=== PATIENT | male | born 1940 | race Caucasian/White ===

== ENCOUNTER 2016-05-02 05:31 | Inpatient (IN) | payer MEDICARE, OTHER ==
[2016-05-01 09:17] VITALS: Ht 172.7 cm; Wt 94.0 kg
[~2016-05-02] VITALS: Ht 172.7 cm; Wt 94.0 kg
[2016-05-02] VITALS (24 sets, daily range): BP systolic 110–159; BP diastolic 62–88; PULSE 54–73; RESP 17–20
[~2016-05-02 05:31] MED LIST: BUPIVACAINE 0.5% (SDV) 30 ML, morphine SULFATE (PF) 8 MG, EPINEPHrine 0.3 MG, KETOROLAC... IRR SCH; CEFAZOLIN 2 GM/50 ML (PMX) 50 ML IVPB ONE; DEXAMETHASONE 1 MG TAB PO ONE; GABAPENTIN 300 MG CAP PO ONE; TRANEXAMIC ACID 1,000 MG in SOD CHLORIDE 0.9% 100 ML IVPB ONE; oxyCODONE (CR) 10 MG TAB [oxyCONTIN] PO ONE; traMADol 50 MG TAB PO ONE
[2016-05-02] MEDS ORDERED: LISI-313 PO (06:37)
[2016-05-02] MEDS ORDERED: BUPIVACAINE 0.5%/EPI (SDV) 30 ML INJ ONE (06:42)
[2016-05-02] MEDS ORDERED: CA CHLORIDE 10% 10 ML SYRINGE ONE (06:43)
[2016-05-02] MEDS ORDERED: THROMBIN 5000 UNIT VIAL ONE (06:43)
[2016-05-02] MEDS ORDERED: POLYMYXIN/BACITRACIN 1L IRRIG ONE (06:43)
[2016-05-02] MEDS ORDERED: MIDAZOLAM 1 MG/ML 2 ML INJ ONE (06:54)
[2016-05-02] MEDS ORDERED: ROPIVACAINE 0.5 % 30 ML VIAL ONE (06:59)
[2016-05-02] MEDS ORDERED: BUPIVACAINE 0.25%/EPI (SDV) 30 ML INJ ONE (06:59)
[2016-05-02] MEDS ORDERED: LABETALOL HCL 20MG INJ IV PRN (08:30)
[2016-05-02] MEDS ORDERED: NALOXONE (0.4 MG/ML) INJ IV PRN (08:30)
[2016-05-02] MEDS ORDERED: ONDANSETRON 4 MG INJ IV PRN ×2 (08:30→09:00)
[2016-05-02] MEDS ORDERED: HYDROmorphONE (0.2 MG/ML) 10ML SYG IV PRN ×2 (08:30)
[2016-05-02] MEDS ORDERED: hydrALAzine 20 MG INJ IV PRN (08:30)
[2016-05-02] MEDS ORDERED: FENTAnyl 50 MCG/ML VIAL IV PRN (08:30)
[2016-05-02] MEDS ORDERED: DIPHENHYDRAMINE 50 MG INJ IV PRN ×2 (08:30→09:00)
[2016-05-02] MEDS ORDERED: MEPERIDINE 25 MG INJ IV PRN (08:30)
[2016-05-02] MEDS ORDERED: LIDOCAINE 2% (SDV) 5 ML INJ ONE (08:41)
[2016-05-02] MEDS ORDERED: ROCURONIUM 50 MG INJ ONE (08:41)
[2016-05-02] MEDS ORDERED: ETOMIDATE 20 MG INJ ONE (08:41)
[2016-05-02] MEDS ORDERED: CEFAZOLIN 1 GM INJ ONE (08:42)
[2016-05-02] MEDS ORDERED: ONDANSETRON 4 MG INJ ONE ×2 (08:42→08:43)
[2016-05-02] MEDS ORDERED: GLYCOPYRROLATE 0.4 MG INJ ONE (08:43)
[2016-05-02] MEDS ORDERED: NEOSTIGMINE 3 MG/3 ML SYRINGE ONE (08:43)
--- NOTE | 2016-05-02 08:51 | HPN ---
Date/Time of Note Date/Time of Note DATE: 05/02/16 TIME: 08:51 Interval H&P Admission Note Pt. seen H&P reviewed: No system changes DIVYA REINA MD May 02, 2016 08:51
--- NOTE | 2016-05-02 08:52 | PDOCDIS ---
Discharge Instructions DIAGNOSIS Discharge Diagnosis: Shoulder arthritis CONDITION Patient Condition: Good HOME CARE INSTRUCTIONS: Diet Instructions: Regular ACTIVITY: Activity Restrictions: Slowly Increase Activity Keep Limb Elevated Bathing Restrictions: Shower FOLLOW UP/APPOINTMENTS Appointments two weeks SCHOOL/WORK RELEASE May return to School/Work with: With Restrictions School/Work Release Comment: Five pound table top usage for six weeks DIVYA REINA MD May 02, 2016 08:52
[2016-05-02] MEDS ORDERED: MAGNESIUM HYDROXIDE 30ML CUP PO PRN (09:00)
[2016-05-02] MEDS ORDERED: morphine 2 MG INJ IV PRN (09:00)
[2016-05-02] MEDS ORDERED: ZOLPIDEM 5 MG TAB PO PRN (09:00)
[2016-05-02] MEDS ORDERED: TRANEXAMIC ACID 1,000 MG in SOD CHLORIDE 0.9% 100 ML IV ONE (09:00)
[2016-05-02] MEDS ORDERED: ACETAMINOPHEN 500 MG TAB PO PRN (09:00)
[2016-05-02] MEDS ORDERED: KETOROLAC 15 MG INJ IV PRN (09:00)
[2016-05-02] MEDS: CEFAZOLIN 1 GM/50 ML (PMX) 50 ML IVPB SCH ×2 (09:00→16:58)
[2016-05-02] MEDS ORDERED: OXYCODONE/ACETAMINOPHEN (5/325) TAB PO PRN (09:00)
[2016-05-02] MEDS ORDERED: morphine 4 MG/ML VIAL IV PRN (09:00)
--- NOTE | 2016-05-02 09:46 | RADRPT ---
PROCEDURE: Left shoulder 2 views CLINICAL INDICATION: S post left shoulder hemiarthroplasty, left shoulder pain. TECHNIQUE: AP internal and external rotation views of the left shoulder were obtained COMPARISON: None available FINDINGS: Left shoulder hemiarthroplasty is identified. Prosthetic component appears in appropriate position and alignment. Linear metallic density seen inferior to the prosthesis may reflect an inferior comp onent of the prosthesis. Diffuse osteopenia is observed. No destructive bony lesions are observed. Mild narrowing of the acromioclavicular joint is seen. Soft tissue air is procedural in nature. IMPRESSION: Left shoulder hemiarthroplasty. Prosthetic components appear in appropriate position and alignment. Mild degenerative change of the acromioclavicular joint. RPTAT: AA .Harrison Honeycutt MD, Date Time Electronically viewed and signed by .Harrison Honeycutt MD, on 05/02/2016 09:45 .P/
--- NOTE | 2016-05-02 11:06 | OPR ---
DATE OF OPERATION: 05/02/2016 SURGEON: Divya Funk MD [employer] OPERATOR: Bean Bedoya PA-C PREOPERATIVE DIAGNOSIS: Left shoulder osteoarthritis. POSTOPERATIVE DIAGNOSIS: Left shoulder primary osteoarthritis. OPERATION PERFORMED: Left total shoulder replacement. Wood Box Maker surgeon, Bean Bedoya was asked to be present at my request as a result of the signif icant surgical complexity associated with this procedure, including positioning of the extremity, ma nipulation and protection of the neurovascular structures. In my opinion, the assistance offered by a surgical services manager is insufficient and Mr. Bedoya should be compensated for his time. PROCEDURE IN DETAIL: Following administration of general endotracheal anesthesia, the patient was p laced in the beach chair position. The left upper extremity was prepped and draped in usual sterile fashion. An extended deltopectoral incision was then undertaken, exposing the conjoined tendon, re tracting it medially. The subscapularis was identified and incised. The intra-articular portion of the biceps was significantly degenerative and partially torn. The intra-articular portion was rese cted and the tendon tenodesed to the bicipital groove. The subscapularis was detached and a very la rge osteophytic process was removed from around the humeral head, severe arthritis was noted on both sides of the joint. The humeral head cut was then made in the appropriate degree of version and in clination. The humerus was then retracted. Peripheral capsulectomy completed. Peripheral osteophytes were rem kandi around the glenoid. The central canal was entered and prepared for a 48 mm DePuy glenoid. The actual glenoid was impacted with cement. Solid fixation was obtained. The humerus was then reamed up to the 14 mm DePuy device. The device was implanted with a 58 mm hum eral head. The joint was taken through a full range of motion with no instability. The joint was thoroughly irrigated, subscapularis reapproximated with #2 permanent sutures that were passed circumferentially around the humerus. The joint was again checked for range of motion which was appropriate with no instability. The joint was irrigated once again, closed in layers followed by a Prineo dressing. Watertight closure was obtained. The patient was awakened and transported t o recovery in stable condition after being placed in a sling. Estimated blood loss for this procedu re was 100 mL. Postoperative x-rays will be obtained in the recovery room. Dictated By: DIVYA TRACY/MARTA Conf#: [id number] DID#: [id number]
[2016-05-02] MEDS: LISINOPRIL 5 MG TAB PO SCH ×2 (11:22→19:53)
[2016-05-02] MEDS: SENNA/DOCUSATE NA (8.6MG/50MG) TAB PO SCH ×2 (11:22→20:11)
[2016-05-02] MEDS: DEXAMETHASONE 2 MG TAB PO SCH ×3 (13:27→23:50)
[2016-05-02] MEDS: OXYCODONE/ACETAMINOPHEN (5/325) TAB PO PRN ×3 (13:30→23:50)
[2016-05-02] MEDS ORDERED: GABAPENTIN 300 MG CAP PO SCH (21:00)
[2016-05-03 00:01] VITALS: BP 162/79; RESP 20
[2016-05-03] MEDS: CEFAZOLIN 1 GM/50 ML (PMX) 50 ML IVPB SCH (01:09)
[2016-05-03] MEDS: DEXAMETHASONE 2 MG TAB PO SCH (06:30)
[2016-05-03 06:36] VITALS: BP 132/66; PULSE 60; RESP 18
--- NOTE | 2016-05-03 06:48 | DS ---
Date/Time of Note Date/Time of Note DATE: 05/03/16 TIME: 06:47 Discharge Summary Admission/Discharge Info Admit Date/Time May 02, 2016 at 05:31 Discharge Date/Time May 03, 2016 following occupational therapy Final Diagnosis Left shoulder osteoarthritis Patient Condition: Good Procedures Left total shoulder replacement Hx of Present Illness Significant stiffness and pain of the left shoulder Hospital Course Patient was admitted, underwent surgery, underwent physical therapy then went home Home Meds Reported Medications Lisinopril* (Lisinopril*) 5 Mg Tablet, 5 MG PO DAILY, #30 TAB 05/02/16 Follow-up Plan 2 weeks Pending Labs None DIVYA REINA MD May 03, 2016 06:48
--- NOTE | 2016-05-03 06:48 | PN ---
Date/Time of Note Date/Time of Note DATE: 05/03/16 TIME: 06:48 24 hour Interval Summary Patient experienced minimal pain overnight. He is comfortable this morning. Clinical examination reveals that his wound is clean and dry. He is neurologically intact. He has no signs of DVT. Assessment: Status post total shoulder replacement Plan: Occupational therapy followed by discharge home. Physical Exam Vital Signs Date Time Temp Pulse Resp B/P Pulse Ox O2 Delivery O2 Flow Rate FiO2 05/03/16 06:36 97.8 60 18 132/66 96 05/02/16 12:00 Room Air 05/02/16 09:57 2.0 Intake and Output 05/02/16 05/02/16 05/03/16 15:00 23:00 07:00 Intake Total 900 ml 700 ml 970 ml Output Total 75 ml 100 ml 700 ml Balance 825 ml 600 ml 270 ml VTE Prophylaxis VTE Prophylaxis Intervention: anti-embolic stocking Lines/Catheters IV Catheter Type: Saline Lock Michelle in Place: No Assessment/Plan Chief Complaint/Hosp Course Patient was admitted, underwent surgery, underwent physical therapy then went home Problems: Medications Medications Home Meds Reported Medications Lisinopril* (Lisinopril*) 5 Mg Tablet, 5 MG PO DAILY, #30 TAB 05/02/16 DIVYA REINA MD May 03, 2016 06:48
[2016-05-03 07:00] VITALS: BP 119/70; RESP 20
[2016-05-03] MEDS ORDERED: ASPIRIN 81 MG TAB PO SCH (09:00)
[2016-05-03] MEDS ORDERED: CEFAZOLIN 1 GM/50 ML (PMX) 50 ML IVPB SCH (09:00)
[2016-05-03] MEDS: SENNA/DOCUSATE NA (8.6MG/50MG) TAB PO SCH (09:09)
[2016-05-03] MEDS: LISINOPRIL 5 MG TAB PO SCH (09:09)
[2016-05-03] MEDS: OXYCODONE/ACETAMINOPHEN (5/325) TAB PO PRN (11:18)
--- NOTE | 2016-05-06 07:26 | PREOPHP ---
DATE OF ADMISSION: 05/02/2016 SURGEON: Dr. Reina DATE OF SURGERY: 05/02/2016 SURGERY: Total left shoulder replacement. HOSPITAL: [facility] HISTORY: The patient is a 76-year-old male with chronic left shoulder pain. He presented to Dr. Adilson cohn and after evaluation and mutual consent a total left shoulder replacement has been scheduled. He presented [facility] on 04/24/2016 for preop clearance. PAST HISTORY: SURGICAL: 1. Bilateral inguinal hernia repair. 2. Hemorrhoidal banding. PAST MEDICAL HISTORY: 1. Hyperlipidemia. 2. Hypertension. 3. Benign prostatic hypertrophy. 4. Hypothyroidism. FAMILY HISTORY: Mom at age 97 with congestive heart failure and dementia. Dad at age 87, h ad complications from Parkinson's. Sister unknown. SOCIAL HISTORY: The patient is an artist and a blog writer. . Has 3 children. He is a former smoke r. Drinks alcohol on a regular basis, about 1 to 3 drinks daily. MEDICATIONS: The patient is on lisinopril 5 mg twice a day. PHYSICAL EXAMINATION: GENERAL: The patient is well developed pleasant male in no apparent distress. VITAL SIGNS: Height is 5 feet 6 inches, weight 206.5 pounds, BMI 33.3. Blood pressure 130/70. Pulse is 60. HEENT: Head is atraumatic. Normocephalic. Pupils are round, equal, reactive to light. Extraocular m uscles intact. NECK: Supple. JVD . No carotid bruit heard. No thyromegaly. No lymphadenopathy . Trachea is c entral. CHEST: Nontender. Lungs are clear to auscultation and percussion. HEART: Regular rate and rhythm. Has a I/ ejective systolic murmur at the left sternal border. ABDOMEN: Soft, nontender, normoactive bowel sounds. EXTREMITIES: Left shoulder, patient has a positive arc test at 75 degrees. DIRECTOR INTELLIGENCE ANALYSIS PROGRAMS: Nonfocal. LABORATORY DATA: As follows: CBC: White cell count 6.8, hemoglobin 13.9, hematocrit is 43.2. Platele t count is 358. His PT is 10.2, INR is 1.02, sodium is 142, potassium is 4.9, chloride 106, CO2 is 2 8, glucose is 98, BUN is 14, creatinine is 1.1. Liver function tests are normal. UA is unremarkable . EKG is normal sinus rhythm. Chest x-ray was normal as well, except for mild left ventricular enlargement and ectatic aortic. ASSESSMENT: 1. Severe left shoulder degenerative joint disease. 2. Hypertension. 3. Prediabetes. 4. Benign prostatic hyperplasia. RECOMMENDATIONS: The patient has been cleared for surgery. 2. Advised not to take any nonsteroidal antiinflammatory drugs including aspirin, Aleve, Advil and stop his supplement 7 days prior to surgery. Tylenol only for pain. Patient advised to be n.p.o. aft er midnight. May take blood pressure medication with very little water on the morning of surgery. D VT and antibiotic prophylaxis per Dr. Reina. If any further assistance is needed in the care of ou r mutual patient please contact Dr. Quiñones, internal medicine, . Dr. Quiñones dictating HP for Divya Reina MD Dictated By: DIVYA REINA MD CG/NTS Conf#: [id number] DID#: [id number] CC: Nuria;*EndCC*
== END 2016-05-03 11:25 | disposition home or self-care (01) | DRG 483 ==
LOC: REC 05:31 → MS1 10:15
PROVIDERS: ADMIT Orthopaedic Surgery; ATTEND Orthopaedic Surgery
PROC: 0RRK0JZ Replacement of Left Shoulder Joint with Synthetic Substitute, Open Approach (ICD-10-PCS; principal; 2016-05-02 07:00)
DX: M19.012 Primary osteoarthritis, left shoulder (principal); I10 Essential (primary) hypertension; M25.512 Pain in left shoulder; E78.5 Hyperlipidemia, unspecified; E03.9 Hypothyroidism, unspecified; R73.03 Prediabetes; N40.0 Benign prostatic hyperplasia without lower urinary tract symptoms; Z87.891 Personal history of nicotine dependence
CPT/HCPCS: 73030; 86999; 97166; Z7610; C1776; J0171; J0690; J0735; J1885; J2250; J2274; J2405; J2710; J2795; J3010; J3370